=== PATIENT | female | born 1975 | race Caucasian/White ===

== ENCOUNTER → 2018-10-22 | Outpatient (CLI) | payer OTHER ==
[~2018-10-22] MED LIST: ARIP20 PO; ESCI20; FLUO20 PO; HYDACE5 PO; IBUP400; LAMO100; LAMO100 PO; LANS30EC PO
== END | disposition home or self-care (01) ==
LOC: LAB SHORT 09:30 → LAB 09:30
DX: R30.0 Dysuria (principal)
CPT/HCPCS: 87077; 87086; 87186

== ENCOUNTER → 2019-04-11 | Outpatient (CLI) | payer OTHER, BC ==
[2019-04-11 18:18] LABS: BASOPHILS ABSOLUTE AUTO 0.04 K/mm3 (0.00-0.23); BASOPHILS PERCENT AUTO 1 % (0-2); EOSINOPHILS ABSOLUTE AUTO 0.14 K/mm3 (0.00-0.68); EOSINOPHILS PERCENT AUTO 2 % (0-6); Hematocrit 36.8 % (33.0-51.0); Hemoglobin 12.2 g/dL (11.5-16.0); IMMATURE GRAN ABSOLUTE AUTO 0.02 K/mm3 (0.00-0.10); IMMATURE GRAN PERCENT AUTO 0 % (0-1); LYMPHOCYTES ABSOLUTE AUTO 1.58 K/mm3 (0.84-5.20); LYMPHOCYTES PERCENT AUTO 22 % (21-46); MONOCYTES ABSOLUTE AUTO 0.46 K/mm3 (0.16-1.47); MONOCYTES PERCENT AUTO 6 % (4-13); Mean Corpuscular HGB 27.5 pg (26.0-34.0); Mean Corpuscular HGB Conc 33.2 g/dL (31.5-36.5); Mean Corpuscular Volume 83 fL (80-100); Mean Platelet Volume 11.1 fL (9.1-12.4); NEUTROPHILS ABSOLUTE AUTO 4.95 K/mm3 (1.96-9.15); NEUTROPHILS PERCENT AUTO 69 % (41-73); Platelet Count 293 K/mm3 (150-400); RDW Coefficient Variation 12.6 % (11.7-14.2); Red Blood Cell Count 4.43 M/mm3 (3.80-5.20); White Blood Cell Count 7.19 K/mm3 (4.00-11.30)
[2019-04-11 18:29] LABS: Alanine Aminotransfer (ALT/SGP 15 U/L (12-78); Albumin, Blood 3.8 g/dL (3.4-5.0); Albumin/Globulin Ratio 1.1 (0.8-1.8); Alk Phos 104 U/L (50-136); Anion Gap 5 mmol/L (6-16); Aspartate Aminotrans (AST/SGOT 13 U/L (12-37); Bilirubin, Total 0.5 mg/dL (0.1-1.0); Blood Urea Nitrogen 12 mg/dL (8-24); Bun/Creatinine Ratio 18.7 (12.0-20.0); CO2, Blood 28 mmol/L (21-32); Chloride, Blood 107 mmol/L (98-108); Creatinine, Blood 0.64 mg/dL (0.40-1.00); Globulin, Blood 3.5 g/dL (2.2-4.0); Glomerular Filtration Rate >60 (60-); Glucose, Blood 86 mg/dL (70-99); Potassium, Blood 3.9 mmol/L (3.5-5.5); Sodium, Blood 140 mmol/L (136-145); Total Protein, Blood 7.3 g/dL (6.4-8.2)
== END | disposition home or self-care (01) ==
LOC: LAB 18:09 → LAB SHORT 18:09
PROVIDERS: Emergency Medicine
DX: R51 Headache (principal)
CPT/HCPCS: 80053; 84443; 85025

== ENCOUNTER 2019-09-01 12:25 | Observation (INO) | payer OTHER, BC ==
[~2019-09-01] VITALS: Ht 165.1 cm; Wt 100.9 kg
[~2019-09-01 12:25] MED LIST changes: -FLUO20 PO; +Fluoxetine HCl10 M1 PO
[2019-09-01] MEDS ORDERED: BUPR100 PO (12:38)
[2019-09-01 13:57] LABS: BASOPHILS ABSOLUTE AUTO 0.05 K/mm3 (0.00-0.23); BASOPHILS PERCENT AUTO 1 % (0-2); EOSINOPHILS ABSOLUTE AUTO 0.13 K/mm3 (0.00-0.68); EOSINOPHILS PERCENT AUTO 2 % (0-6); Hematocrit 38.1 % (33.0-51.0); Hemoglobin 12.5 g/dL (11.5-16.0); IMMATURE GRAN ABSOLUTE AUTO 0.01 K/mm3 (0.00-0.10); IMMATURE GRAN PERCENT AUTO 0 % (0-1); LYMPHOCYTES ABSOLUTE AUTO 1.62 K/mm3 (0.84-5.20); LYMPHOCYTES PERCENT AUTO 27 % (21-46); MONOCYTES ABSOLUTE AUTO 0.42 K/mm3 (0.16-1.47); MONOCYTES PERCENT AUTO 7 % (4-13); Mean Corpuscular HGB 28.2 pg (26.0-34.0); Mean Corpuscular HGB Conc 32.8 g/dL (31.5-36.5); Mean Corpuscular Volume 86 fL (80-100); Mean Platelet Volume 10.5 fL (9.1-12.4); NEUTROPHILS ABSOLUTE AUTO 3.89 K/mm3 (1.96-9.15); NEUTROPHILS PERCENT AUTO 64 % (41-73); Platelet Count 324 K/mm3 (150-400); RDW Standard Deviation 40.6 fL (35.1-46.3); Red Blood Cell Count 4.43 M/mm3 (3.80-5.20); White Blood Cell Count 6.12 K/mm3 (4.00-11.30)
[2019-09-01 14:14] LABS: Alanine Aminotransfer (ALT/SGP 20 U/L (12-78); Albumin, Blood 3.7 g/dL (3.4-5.0); Alk Phos 108 U/L (50-136); Anion Gap 5 mmol/L (6-16); Aspartate Aminotrans (AST/SGOT 12 U/L (12-37); Bilirubin, Total 0.3 mg/dL (0.1-1.0); Blood Urea Nitrogen 9 mg/dL (8-24); Bun/Creatinine Ratio 13.6 (12.0-20.0); CO2, Blood 26 mmol/L (21-32); Calcium, Blood 8.4 mg/dL (8.5-10.1); Chloride, Blood 108 mmol/L (98-108); Creatinine, Blood 0.66 mg/dL (0.40-1.00); Globulin, Blood 3.7 g/dL (2.2-4.0); Glomerular Filtration Rate >60 (60-); Glucose, Blood 104 mg/dL (70-99); Sodium, Blood 139 mmol/L (136-145); Total Protein, Blood 7.4 g/dL (6.4-8.2)
[2019-09-01 17:31] LABS: Source, Urine Voided
[2019-09-01 17:37] LABS: Bilirubin, Urine Neg (Neg); Blood, Urine Neg (Neg); Glucose Qualitative, Urine Neg (Neg); Ketones, Urine 2+ (Neg); Leukocyte Esterase, Urine 1+ (Neg); Nitrite, Urine Pos (Neg); Protein, Urine Neg (Neg); Specific Gravity, Urine 1.015 (1.003-1.022); Urobilinogen, Urine 1+ (Normal); pH, Urine 6.5 (5.0-8.0)
[2019-09-01 17:44] LABS: Appearance, Urine Cloudy (Clear); Color, Urine Yellow (P-Yellow)
[2019-09-01 17:45] LABS: Bacteria Many /hpf; Red Blood Cells, Urine 0-2 /hpf (0-2); Squamous Epithelial Cells Mod /hpf (Few)
[2019-09-01] MEDS ORDERED: NORT25 PO (20:02)
[2019-09-01] MEDS ORDERED: Imitrex50 MG PO (21:09)
--- NOTE | 2019-09-02 00:45 | NUR ---
PATIENT ARRIVED TO THE UNIT AT 2351 ON 09-01-19. SHE IS ALERT AND ORIENTED. WAS ACCOMPANIED BY DAUGHTER AND . PATIENT HAD COMPLAINT OF PAIN IN HER RIGHT FLANK AND ABDOMEN BUT SAID THAT THE PAIN MEDICINE THAT WAS LAST GIVEN TO HER IN THE ED HAD KICKED IN AND THAT HER PAIN WAS CURRENLTY AT A 5. SHE SAID THAT THIS WAS A TOLERABLE LEVEL FOR HER. WILL CONTINUE TO MONITOR.
--- NOTE | 2019-09-02 04:30 | NUR ---
SHIFT SUMMARY AFTER PATIENT ARRIVED TO THE UNIT HER PAIN STARTED INCREASING FROM A REPORTED 4/5 TO A 6. PATIENT WAS GIVEN PRN FENTANYL WHICH HELPED REDUCE THE PATIENT'S PAIN BACK DOWN TO A 4/5 SO SHE COULD GET SLEEP. SINCE THE PRN FENTANYL SHE HAS SLEPT ALL NIGHT. IV PATENT AND INFUSING WITH NS AT 200ML/HR. BED IN LOWEST POSITION WITH WHEELS LOCKED. CALL LIGHT WITHIN REACH. REPORT GIVEN TO ONCOMING RN.
[2019-09-02 05:49] LABS: Anion Gap 7 mmol/L (6-16); Blood Urea Nitrogen 10 mg/dL (8-24); Bun/Creatinine Ratio 10.1 (12.0-20.0); CO2, Blood 21 mmol/L (21-32); Calcium, Blood 7.8 mg/dL (8.5-10.1); Chloride, Blood 110 mmol/L (98-108); Creatinine, Blood 0.99 mg/dL (0.40-1.00); Glomerular Filtration Rate >60 (60-); Glucose, Blood 108 mg/dL (70-99); Potassium, Blood 3.7 mmol/L (3.5-5.5); Sodium, Blood 138 mmol/L (136-145)
[2019-09-02] MEDS ORDERED: ACET325 PO (11:59)
[2019-09-02] MEDS ORDERED: TAMS.4ER PO (11:59)
[2019-09-02] MEDS ORDERED: CEPH500 PO (12:00)
[2019-09-02] MEDS ORDERED: HYDR1TAB94 PO (12:01)
--- NOTE | 2019-09-02 12:36 | NUR ---
1236 PT DISCHAGED HOME VIA PERSONAL VEHICLE ACCOMPANINED AND DRIVEN BY . PT ESCORTED TO ENTRANCE VIA W/C BY [facility]. IV REMOVED. D/C PAPERWORK REVIEWED WITH PT AND COPY PROVIDED, ALONG WITH HARD SCRIPT FOR DAVID. NEW RX FAXED TO [facility] PER PT REQUEST. PT REPROTS SHE IS CALLING PCP TO FOLLOW UP WEDNESDAY. NO NEW CHANGES OR CONCERNS.
== END 2019-09-02 12:36 | disposition home or self-care (01) ==
LOC: ER 12:25 → MEDS 12:26 → ENPENDDIS 09-02 10:00 → MEDS 09-02 12:36
PROVIDERS: Emergency Medicine; ADMIT Hospitalist
DX: N13.2 Hydronephrosis with renal and ureteral calculous obstruction (principal); G92 Toxic encephalopathy; F41.9 Anxiety disorder, unspecified; F32.9 Major depressive disorder, single episode, unspecified; E66.9 Obesity, unspecified; Z79.899 Other long term (current) drug therapy; Z90.49 Acquired absence of other specified parts of digestive tract; Z90.710 Acquired absence of both cervix and uterus; Z68.36 Body mass index [BMI] 36.0-36.9, adult
CPT/HCPCS: 36415; 74176; 80048; 80053; 81001; 85025; 87077; 87086; 87186; 96361; 96365; 96375; 96376; 99285-25; A9270; G0378; J0696; J1170; J1200; J1885; J2405; J3010; J7030; P9612

== ENCOUNTER 2019-09-05 16:51 | Emergency (ER) | payer OTHER, BC ==
[~2019-09-05] VITALS: Ht 165.1 cm; Wt 99.3 kg
[2019-09-05 17:50] LABS: Calcium, Ionized (POC) 1.06 mmol/L (1.10-1.46); Chloride (POC) 105 mmol/L (98-108); Creatinine (POC) 1.1 mg/dL (0.6-1.0); Glucose (ISTAT POC) 92 mg/dL (70-99); Hemoglobin (POC) 8.5 g/dL (12.0-16.0); Potassium (POC) 3.1 mmol/L (3.5-5.5); Sodium (POC) 137 mmol/L (135-148); Total CO2 (POC) 22 mmol/L (21-32)
[2019-09-05 17:58] LABS: Source, Urine Catheter
[2019-09-05 18:01] LABS: Hematocrit 28.9 % (33.0-51.0); Hemoglobin 9.5 g/dL (11.5-16.0)
[2019-09-05 18:06] LABS: Bilirubin, Urine Neg (Neg); Blood, Urine Neg (Neg); Glucose Qualitative, Urine Neg (Neg); Ketones, Urine 3+ (Neg); Leukocyte Esterase, Urine 1+ (Neg); Nitrite, Urine Neg (Neg); Protein, Urine 2+ (Neg); Urobilinogen, Urine 2+ (Normal)
[2019-09-05 18:14] LABS: Appearance, Urine Clear (Clear); Color, Urine Amber (P-Yellow)
[2019-09-05 18:15] LABS: Bacteria Few /hpf; Red Blood Cells, Urine Not Seen /hpf (0-2); White Blood Cells, Urine 0-2 /hpf (0-5)
[2019-09-05 18:16] LABS: Squamous Epithelial Cells Mod /hpf (Few)
== END 2019-09-05 22:50 | disposition short-term general hospital (02) ==
LOC: ER 16:51
PROVIDERS: Emergency Medicine
DX: A41.9 Sepsis, unspecified organism (principal); N13.2 Hydronephrosis with renal and ureteral calculous obstruction; N39.0 Urinary tract infection, site not specified; D64.9 Anemia, unspecified; E87.6 Hypokalemia; F32.9 Major depressive disorder, single episode, unspecified; Z79.899 Other long term (current) drug therapy
CPT/HCPCS: 36415; 74177; 80047; 81001; 82272; 85014; 87086; 96365-59; 96375; 96376; 99285-25; J0696; J1885; J2405; J3010; J7030; P9612; Q9967

== ENCOUNTER → 2019-09-05 | Outpatient (CLI) | payer OTHER, BC ==
[~2019-09-05] MED LIST changes: +ACET325 PO; +BUPR100 PO; +CEPH500 PO; +HYDR1TAB94 PO; +Imitrex50 MG PO; +NORT25 PO; +TAMS.4ER PO
[2019-09-05 15:38] LABS: BASOPHILS ABSOLUTE AUTO 0.02 K/mm3 (0.00-0.23); BASOPHILS PERCENT AUTO 0 % (0-2); EOSINOPHILS ABSOLUTE AUTO 0.11 K/mm3 (0.00-0.68); EOSINOPHILS PERCENT AUTO 2 % (0-6); Hematocrit 32.9 % (33.0-51.0); Hemoglobin 10.9 g/dL (11.5-16.0); IMMATURE GRAN ABSOLUTE AUTO 0.05 K/mm3 (0.00-0.10); IMMATURE GRAN PERCENT AUTO 1 % (0-1); LYMPHOCYTES ABSOLUTE AUTO 0.84 K/mm3 (0.84-5.20); LYMPHOCYTES PERCENT AUTO 13 % (21-46); MONOCYTES ABSOLUTE AUTO 0.57 K/mm3 (0.16-1.47); MONOCYTES PERCENT AUTO 9 % (4-13); Mean Corpuscular HGB 27.9 pg (26.0-34.0); Mean Corpuscular HGB Conc 33.1 g/dL (31.5-36.5); Mean Corpuscular Volume 84 fL (80-100); Mean Platelet Volume 10.5 fL (9.1-12.4); NEUTROPHILS ABSOLUTE AUTO 4.78 K/mm3 (1.96-9.15); NEUTROPHILS PERCENT AUTO 75 % (41-73); Platelet Count 282 K/mm3 (150-400); RDW Coefficient Variation 13.2 % (11.7-14.2); RDW Standard Deviation 40.2 fL (35.1-46.3); Red Blood Cell Count 3.91 M/mm3 (3.80-5.20); White Blood Cell Count 6.37 K/mm3 (4.00-11.30)
[2019-09-05 16:06] LABS: Albumin, Blood 2.8 g/dL (3.4-5.0); Albumin/Globulin Ratio 0.6 (0.8-1.8); Bilirubin, Total 0.7 mg/dL (0.1-1.0); Bun/Creatinine Ratio 8.3 (12.0-20.0); Calcium, Blood 8.6 mg/dL (8.5-10.1); Creatinine, Blood 1.08 mg/dL (0.40-1.00); Globulin, Blood 4.6 g/dL (2.2-4.0); Potassium, Blood 2.9 mmol/L (3.5-5.5); Total Protein, Blood 7.4 g/dL (6.4-8.2)
== END | disposition home or self-care (01) ==
LOC: LAB SHORT 14:55 → LAB 14:55
PROVIDERS: Physician Assistant
DX: R10.9 Unspecified abdominal pain (principal); R06.02 Shortness of breath
CPT/HCPCS: 80053; 85025

== ENCOUNTER 2019-09-14 10:57 | Emergency (ER) | payer OTHER, BC ==
[~2019-09-14] VITALS: Ht 165.1 cm; Wt 99.3 kg
[2019-09-14 11:55] LABS: BASOPHILS ABSOLUTE AUTO 0.06 K/mm3 (0.00-0.23); BASOPHILS PERCENT AUTO 1 % (0-2); EOSINOPHILS ABSOLUTE AUTO 0.17 K/mm3 (0.00-0.68); EOSINOPHILS PERCENT AUTO 3 % (0-6); Hematocrit 36.8 % (33.0-51.0); Hemoglobin 11.8 g/dL (11.5-16.0); IMMATURE GRAN ABSOLUTE AUTO 0.04 K/mm3 (0.00-0.10); IMMATURE GRAN PERCENT AUTO 1 % (0-1); LYMPHOCYTES ABSOLUTE AUTO 1.64 K/mm3 (0.84-5.20); LYMPHOCYTES PERCENT AUTO 28 % (21-46); MONOCYTES ABSOLUTE AUTO 0.38 K/mm3 (0.16-1.47); MONOCYTES PERCENT AUTO 7 % (4-13); Mean Corpuscular HGB 27.9 pg (26.0-34.0); Mean Corpuscular HGB Conc 32.1 g/dL (31.5-36.5); Mean Platelet Volume 9.4 fL (9.1-12.4); NEUTROPHILS PERCENT AUTO 61 % (41-73); Platelet Count 402 K/mm3 (150-400); RDW Coefficient Variation 13.6 % (11.7-14.2); RDW Standard Deviation 42.2 fL (35.1-46.3); Red Blood Cell Count 4.23 M/mm3 (3.80-5.20); White Blood Cell Count 5.79 K/mm3 (4.00-11.30)
[2019-09-14 12:00] LABS: Mean Corpuscular Volume 87 fL (80-100)
[2019-09-14 12:07] LABS: Alanine Aminotransfer (ALT/SGP 22 U/L (12-78); Albumin, Blood 3.2 g/dL (3.4-5.0); Albumin/Globulin Ratio 0.7 (0.8-1.8); Alk Phos 152 U/L (50-136); Anion Gap 7 mmol/L (6-16); Aspartate Aminotrans (AST/SGOT 17 U/L (12-37); Bilirubin, Total 0.4 mg/dL (0.1-1.0); Blood Urea Nitrogen 11 mg/dL (8-24); Bun/Creatinine Ratio 14.1 (12.0-20.0); CO2, Blood 27 mmol/L (21-32); Calcium, Blood 8.7 mg/dL (8.5-10.1); Chloride, Blood 110 mmol/L (98-108); Creatinine, Blood 0.78 mg/dL (0.40-1.00); Globulin, Blood 4.6 g/dL (2.2-4.0); Glomerular Filtration Rate >60 (60-); Glucose, Blood 78 mg/dL (70-99); Potassium, Blood 3.7 mmol/L (3.5-5.5); Sodium, Blood 144 mmol/L (136-145); Total Protein, Blood 7.8 g/dL (6.4-8.2)
== END 2019-09-14 14:53 | disposition home or self-care (01) ==
LOC: ER 10:57
PROVIDERS: Emergency Medicine
DX: R06.00 Dyspnea, unspecified (principal); Z87.891 Personal history of nicotine dependence; Z79.899 Other long term (current) drug therapy; Z87.442 Personal history of urinary calculi
CPT/HCPCS: 36415; 71260; 80053; 85025; 93970; 99284-25; Q9967

== ENCOUNTER 2020-09-12 11:36 | Emergency (ER) | payer OTHER, BC ==
[~2020-09-12] VITALS: Ht 165.1 cm; Wt 103.9 kg
[2020-09-12] MEDS ORDERED: PRED20 PO (12:23)
[2020-09-12] MEDS ORDERED: AZIT250 PO (12:23)
[2021-01-04] MEDS ORDERED: Venlafaxine HCl75 M1 PO (21:03)
[2021-01-04] MEDS ORDERED: ESTRADIOL0.5 MG PO (21:04)
[2021-01-04] MEDS ORDERED: LORCET 5-325 M1 EACH PO (21:15)
[2021-01-04] MEDS ORDERED: CEFP200 PO (21:15)
== END 2020-09-12 12:32 | disposition home or self-care (01) ==
LOC: ER 11:36
DX: U07.1 COVID-19 (principal); R06.02 Shortness of breath; R07.89 Other chest pain; R05 Cough; R53.81 Other malaise; Z79.52 Long term (current) use of systemic steroids; Z79.899 Other long term (current) drug therapy; Z87.891 Personal history of nicotine dependence
CPT/HCPCS: 99283

== ENCOUNTER → 2021-12-16 | Outpatient (CLI) | payer OTHER, BC ==
[~2021-12-16] MED LIST changes: +AZIT250 PO; +CEFP200 PO; +ESTRADIOL0.5 MG PO; +LORCET 5-325 M1 EACH PO; +PRED20 PO; +Venlafaxine HCl75 M1 PO
== END | disposition home or self-care (01) ==
LOC: LAB SHORT 14:30
DX: N60.02 Solitary cyst of left breast (principal); B95.62 Methicillin resistant Staphylococcus aureus infection as the cause of diseases classified elsewhere
CPT/HCPCS: 87070; 87081; 87205

== ENCOUNTER 2023-01-11 06:08 | Day surgery (SDC) | payer OTHER, BC ==
[~2023-01-11] VITALS: Ht 165.1 cm; Wt 103.4 kg
[~2023-01-11 06:08] MED LIST changes: +ALLEGRA ALLERG180 MG PO; +KLONOPIN PO
[2023-01-11] MEDS ORDERED: Flonase 0.05% N16 GM (07:11)
--- NOTE | 2023-01-11 07:24 | NUR ---
01/11/23 0724 Robert Roper CALL LIGHT WITHIN REACH.
--- NOTE | 2023-01-11 07:48 | NUR ---
01/11/23 0748 Miranda Lopez 30ML OF ROPIVACAINE 0.5% MIXED AND VERIFIED WITH 0.15ML OF EPI (1MG/ML) TO MAKE ROPIVACAINE 0.5% 1:200,000 FOR INJECTION AT THE OPSITE BY DR MORRISSEY.
--- NOTE | 2023-01-11 09:48 | NUR ---
01/11/23 0948 AGUILAR HULL, STUDENT NURSE, ASSISTING WITH CARE. PATIENT STATES THAT THE PAIN IS 10/10.
[2023-01-11 11:23] VITALS: BP 147/84
== END 2023-01-11 11:50 | disposition home or self-care (01) ==
LOC: ORSCSDS 06:08
PROVIDERS: Orthopaedic Surgery
PROC: 0RST0ZZ Reposition Left Carpometacarpal Joint, Open Approach (ICD-10-PCS; principal; 2023-01-11 07:30)
DX: M18.12 Unilateral primary osteoarthritis of first carpometacarpal joint, left hand (principal); G47.33 Obstructive sleep apnea (adult) (pediatric); Z87.891 Personal history of nicotine dependence; E66.9 Obesity, unspecified; Z68.38 Body mass index [BMI] 38.0-38.9, adult
CPT/HCPCS: A9270; J0171; J0690; J1100; J2250; J2270; J2405; J2704; J2795; J3010; J7040; J7120

== ENCOUNTER 2025-03-27 06:49 | Day surgery (SDC) | payer OTHER ==
[~2025-03-27] VITALS: Ht 165.1 cm; Wt 79.4 kg
[~2025-03-27 06:49] MED LIST changes: +Flonase 0.05% N16 GM
[2025-03-27] MEDS ORDERED: Midazolam HCL 1 MG/ML 5MLVIAL ONE (08:26)
[2025-03-27] MEDS ORDERED: ePHEDrine Sulfate 50 MG/ML 1ML Injection ONE (08:48)
[2025-03-27 09:10] VITALS: BP 112/63
== END 2025-03-27 09:25 | disposition home or self-care (01) ==
LOC: ORSCSDS 06:49
PROVIDERS: Internal Medicine Gastroenterology
PROC: 0DJ08ZZ Inspection of Upper Intestinal Tract, Via Natural or Artificial Opening Endoscopic (ICD-10-PCS; principal; 2025-03-27 08:00)
PROC: 0DJD8ZZ Inspection of Lower Intestinal Tract, Via Natural or Artificial Opening Endoscopic (ICD-10-PCS; principal; 2025-03-27 08:00)
DX: D50.9 Iron deficiency anemia, unspecified (principal); Z98.84 Bariatric surgery status; R19.4 Change in bowel habit; Z87.891 Personal history of nicotine dependence; G47.33 Obstructive sleep apnea (adult) (pediatric); F41.8 Other specified anxiety disorders; Z79.899 Other long term (current) drug therapy
CPT/HCPCS: J2250; J2704; J7120